=== PATIENT | male | born 1990 | race Caucasian/White ===

== ENCOUNTER 2020-11-29 22:40 | Emergency (ER) | payer OTHER ==
[2020-11-29] MEDS ORDERED: MORPHINE SULFATE 4 MG INJ IV ONE (23:57)
[2020-11-29] MEDS ORDERED: Protonix 40MG Tablet PO ONE (23:57)
[2020-11-29] MEDS ORDERED: Sodium Chloride 0.9% 1000 ML 1,000 ML IV STA (23:57)
[2020-11-29] MEDS ORDERED: Zofran 4 MG/2 ML VIAL IV ONE (23:57)
--- NOTE | 2020-11-29 23:59 | ERPHSYRPT ---
- History of Present Illness Time Seen by Provider: 11/29/20 23:02 Historian: patient Exam Limitations: no limitations Physician History: 29 years old positive for COVID-19 presented in the ER with worsening nausea vomiting and upper abdominal pain for 5 days. Patient is unable to hold anything down, feels weak fatigued and tired with no energy. Denies any shortness of breath. Minimal cough at times. Had fever earlier which is improved now. Timing/Duration: day(s) (5), intermittent, gradual onset, worse Activities at Onset: rest Quality: sharpness Abdominal Pain Onset Location: RUQ, LUQ, epigastric, periumbilical Pain Radiation: no radiation Severity of Pain-Max: moderate Severity of Pain-Current: moderate Modifying Factors: Worsens With: vomiting Associated Symptoms: nausea, vomiting Previous symptoms: no prior history Allergies/Adverse Reactions: amoxicillin trihydrate [From Augmentin] Allergy (Mild, Verified 11/29/20 23:50) potassium clavula *RETIRED-07/23/12 [From Augmentin] Allergy (Mild, Verified 11/29/20 23:50) Penicillins Allergy (Verified 11/29/20 23:50) Hx Tetanus, Diphtheria Vaccination/Date Given: Yes Hx Influenza Vaccination/Date Given: No Hx Pneumococcal Vaccination/Date Given: No - Review of Systems Constitutional: Fatigue, Weakness Eyes: No Symptoms Ears, Nose, & Throat: No Symptoms Respiratory: Cough Cardiac: No Symptoms Abdominal/Gastrointestinal: Abdominal Pain, Nausea, Vomiting Genitourinary Symptoms: No Symptoms Musculoskeletal: Back Pain Skin: No Symptoms Neurological: No Symptoms Psychological: No Symptoms Endocrine: No Symptoms Hematologic/Lymphatic: No Symptoms Immunological/Allergic: No Symptoms - Past Medical History Pertinent Past Medical History: No - Past Surgical History Past Surgical History: No - Social History Smoking Status: Never smoker Exposure to second hand smoke: No Drug Use: none Patient Lives Alone: No - Nursing Vital Signs Nursing Vital Signs: Initial Vital Signs Temperature 100.1 F 11/29/20 23:51 Pulse Rate 81 11/29/20 23:51 Respiratory Rate 16 11/29/20 23:51 Blood Pressure 127/71 11/29/20 23:51 O2 Sat by Pulse Oximetry 95 11/29/20 23:51 Pain Scale Pain Intensity 5 - Physical Exam General Appearance: no apparent distress, alert Eye Exam: PERRL/EOMI, eyes nml inspection Ears, Nose, Throat Exam: moist mucous membranes, pharyngeal erythema Neck Exam: normal inspection, non-tender, supple, full range of motion Respiratory Exam: normal breath sounds, lungs clear Cardiovascular Exam: regular rate/rhythm, normal heart sounds Gastrointestinal/Abdomen Exam: soft, normal bowel sounds, tenderness (Upper abdomen with minimal guarding and no rebound) Back Exam: normal inspection, normal range of motion Extremity Exam: normal inspection, normal range of motion Neurologic Exam: alert, oriented x 3, cooperative Skin Exam: normal color SpO2 Interpretation: normal SpO2: 98 O2 Delivery: Room Air Ordered Tests: Medication Summary Discontinued Medications Generic Name Dose Route Start Last Admin Trade Name Freq PRN Reason Stop Dose Admin Acetaminophen 1,000 mg 11/30/20 00:56 11/30/20 01:17 Tylenol Extra Strength 500 Mg PO 11/30/20 00:57 1,000 mg STAT STA Administration Acetaminophen Confirm 11/30/20 01:13 Tylenol Extra Strength 500 Mg Administered 11/30/20 01:14 Dose 1,000 mg .ROUTE .STK-MED ONE Sodium Chloride 1,000 mls @ 999 mls/hr 11/29/20 23:57 11/30/20 01:42 Sodium Chloride 0.9% 1000 Ml IV 11/30/20 00:57 Infused .Q1H1M STA Infusion Sodium Chloride Confirm 11/30/20 00:15 Sodium Chloride 0.9% 1000 Ml Administered 11/30/20 00:16 Dose 1,000 mls @ ud .ROUTE .STK-MED ONE Azithromycin 500 mg in 250 mls @ 250 mls/hr 11/30/20 01:08 11/30/20 01:16 Zithromax 500 Mg/ 250 Ml Nacl Premix IV 11/30/20 02:07 250 mls/hr STAT STA 250 mls/hr Administration Azithromycin Confirm 11/30/20 01:13 Zithromax 500 Mg/ 250 Ml Nacl Premix Administered 11/30/20 01:14 Dose 500 mg in 250 mls @ ud IV .STK-MED ONE Morphine Sulfate 4 mg 11/29/20 23:57 11/30/20 00:17 Morphine Sulfate 4 Mg Inj IV 11/29/20 23:58 4 mg STAT ONE Administration Morphine Sulfate Confirm 11/30/20 00:15 Morphine Sulfate 4 Mg Inj Administered 11/30/20 00:16 Dose 4 mg .ROUTE .STK-MED ONE Ondansetron HCl 4 mg 11/29/20 23:57 11/30/20 00:18 Zofran 4 Mg/2 Ml Vial IV 11/29/20 23:58 4 mg STAT ONE Administration Ondansetron HCl Confirm 11/30/20 00:14 Zofran 4 Mg/2 Ml Vial Administered 11/30/20 00:15 Dose 4 mg .ROUTE .STK-MED ONE Pantoprazole Sodium 40 mg 11/29/20 23:57 11/30/20 00:18 Protonix 40mg Tablet PO 11/29/20 23:58 40 mg STAT ONE Administration Pantoprazole Sodium Confirm 11/30/20 00:14 Protonix 40mg Tablet Administered 11/30/20 00:15 Dose 40 mg .ROUTE .STK-MED ONE Lab/Rad Data: Laboratory Result Diagrams 11/29/20 00:42 11/29/20 00:42 Laboratory Results 11/30/20 11/29/20 11/29/20 Range/Units 01:12 00:42 00:42 WBC 2.2 L (4.0-10.5) K/mm3 RBC 5.49 (4.1-5.6) M/mm3 Hgb 15.9 (12.5-18.0) gm/dl Hct 48.1 (42-50) % MCV 87.6 (78-100) fl MCH 29.0 (26-32) pg MCHC 33.1 (32-36) g/dl RDW 13.1 (11.5-14.0) % Plt Count 127 L (150-450) K/mm3 MPV 9.5 (7.5-11.0) fl Gran % 48.5 (36.0-66.0) % Eos # (Auto) 0.01 (0-0.5) Absolute Lymphs (auto) 0.66 L (1.0-4.6) Absolute Monos (auto) 0.45 (0.0-1.3) Lymphocytes % 30.0 (24.0-44.0) % Monocytes % 20.5 H (0.0-12.0) % Eosinophils % 0.5 (0.00-5.0) % Basophils % 0.5 (0.0-0.4) % Absolute Granulocytes 1.07 L (1.4-6.9) Basophils # 0.01 (0-0.4) Sodium 137 (137-145) mmol/L Potassium 3.8 (3.5-5.1) mmol/L Chloride 98 (98-107) mmol/L Carbon Dioxide 28 (22-30) mmol/L Anion Gap 14.3 (5-15) MEQ/L BUN 13 (9-20) mg/dL Creatinine 1.06 (0.66-1.25) mg/dL Estimated GFR > 60.0 ML/MIN Glucose 91 (74-106) mg/dL Calcium 8.4 (8.4-10.2) mg/dL Total Bilirubin 0.50 (0.2-1.3) mg/dL AST 38 (17-59) U/L ALT 27 (0-50) U/L Alkaline Phosphatase 61 (38-126) U/L Serum Total Protein 7.5 (6.3-8.2) g/dL Albumin 4.4 (3.5-5.0) g/dL Lipase 87 (23-300) U/L Urine Color YELLOW (YELLOW) Urine Appearance CLEAR (CLEAR) Urine pH 6.0 (5-6) Ur Specific [place] 1.018 (1.005-1.025) Urine Protein NEGATIVE (Negative) Urine Ketones TRACE (NEGATIVE) Urine Blood SMALL (0-5) Neville/ul Urine Nitrite NEGATIVE (NEGATIVE) Urine Bilirubin NEGATIVE (NEGATIVE) Urine Urobilinogen NEGATIVE (0-1) mg/dL Ur Leukocyte Esterase NEGATIVE (NEGATIVE) Urine WBC (Auto) 0-2 (0-5) /HPF Urine RBC (Auto) 0-2 (0-2) /HPF U Epithel Cells (Auto) NONE (FEW) /HPF Urine Bacteria (Auto) NONE (NEGATIVE) /HPF Urine Mucus (Auto) SLIGHT (NEGATIVE) /HPF Urine Culture Reflexed NO (NO) Urine Glucose NEGATIVE (NEGATIVE) mg/dL - Progress Progress: improved Progress Note: Given fluids and symptomatic treatment, on reevaluation feeling better. CBC consistent with Covid. Does have bilateral pneumonia. No acute pathology in the abdomen. Started on antibiotics and steroid along with Zofran outpatient follow-up recommended. Counseled pt/family regarding: lab results, diagnosis, need for follow-up, rad results - Departure Departure Disposition: Home Clinical Impression: Viral syndrome Abdominal pain Qualifiers: Abdominal location: upper abdomen, unspecified Qualified Code(s): R10.10 - Upper abdominal pain, unspecified Bilateral pneumonia Qualifiers: Pneumonia type: due to unspecified organism Lung location: lower lobe of lung Qualified Code(s): J18.9 - Pneumonia, unspecified organism Condition: Stable Critical Care Time: No Referrals: DOCTOR,NO FAMILY [Primary Care Provider] - ROSANA CHAPPELL MD [ACTIVE STAFF] - Follow Up with PCP/3 days Instructions: Nausea and Vomiting, Adult (DC), Viral Syndrome (DC) Additional Instructions: Keep yourself well-hydrated with plenty of fluids. Take Zofran and Tylenol as needed. Follow-up with your primary care for reevaluation. Return to ER for intractable abdominal pain vomiting or if develop cough shortness of breath etc. Follow contact and droplet precautions Prescriptions: Ondansetron ODT 4 MG [Zofran Odt 4 mg] 4 mg PO Q6H PRN PRN #10 tablet PRN Reason: Vomiting Dexamethasone [Decadron] 6 mg PO DAILY #5 tablet Albuterol 8 gm Mdi Hfa [Ventolin Hfa MDI] 8 gm IH Q4H #1 gm Azithromycin 250 mg [Zithromax 250 MG TABLET] 250 mg PO DAILY #4 tablet
[2020-11-30] MEDS ORDERED: Protonix 40MG Tablet ONE (00:14)
[2020-11-30] MEDS ORDERED: Zofran 4 MG/2 ML VIAL ONE (00:14)
[2020-11-30] MEDS ORDERED: MORPHINE SULFATE 4 MG INJ ONE (00:15)
[2020-11-30] MEDS ORDERED: Sodium Chloride 0.9% 1000 ML 1,000 ML ONE (00:15)
[2020-11-30 00:46] LABS: Absolute Neutrophil Ct (ANC) 1.07 (1.4-6.9); BASOPHIL % 0.5 % (0.0-0.4); Basophil (Absolute #) 0.01 (0-0.4); Eosinophil % 0.5 % (0.00-5.0); Eosinophil (Absolute #) 0.01 (0-0.5); Hematocrit 48.1 % (42-50); Hemoglobin 15.9 gm/dl (12.5-18.0); Lymphocyte (Absolute #) 0.66 (1.0-4.6); Mean Cell Volume 87.6 fl (78-100); Mean Corpuscular Hgb Concent. 33.1 g/dl (32-36); Mean Platelet Volume 9.5 fl (7.5-11.0); Monocyte (Absolute #) 0.45 (0.0-1.3); Monocytes % 20.5 % (0.0-12.0); Neutrophil % 48.5 % (36.0-66.0); Platelet Count 127 K/mm3 (150-450); Red Blood Count 5.49 M/mm3 (4.1-5.6); Red Cell Distribution Width 13.1 % (11.5-14.0); White Blood Count 2.2 K/mm3 (4.0-10.5)
[2020-11-30 00:54] LABS: ALBUMIN 4.4 g/dL (3.5-5.0); ALKALINE PHOSPHATASE 61 U/L (38-126); ANION GAP 14.3 MEQ/L (5-15); BLOOD UREA NITROGEN 13 mg/dL (9-20); CHLORIDE 98 mmol/L (98-107); Calcium 8.4 mg/dL (8.4-10.2); Carbon Dioxide 28 mmol/L (22-30); Creatinine 1 1.06 mg/dL (0.66-1.25); EST GLOMERULAR FILTRATION RATE > 60.0 ML/MIN; Glucose 91 mg/dL (74-106); LIPASE 87 U/L (23-300); Potassium 3.8 mmol/L (3.5-5.1); SGOT/AST 38 U/L (17-59); SGPT/ALT 27 U/L (0-50); SODIUM 137 mmol/L (137-145); Total Protein 7.5 g/dL (6.3-8.2)
[2020-11-30] MEDS ORDERED: TYLENOL EXTRA STRENGTH 500 MG PO STA (00:56)
[2020-11-30] MEDS ORDERED: Zithromax 500 MG/ 250 ML NaCl Premix 500 MG/250 ML IVPB IV STA (01:08)
[2020-11-30] MEDS ORDERED: TYLENOL EXTRA STRENGTH 500 MG ONE (01:13)
[2020-11-30] MEDS ORDERED: Zithromax 500 MG/ 250 ML NaCl Premix 500 MG/250 ML IVPB IV ONE (01:13)
[2020-11-30 01:49] LABS: Appearance CLEAR (CLEAR); Bilirubin NEGATIVE (NEGATIVE); Blood SMALL Ery/ul (0-5); Glucose NEGATIVE (NEGATIVE); Ketones TRACE (NEGATIVE); Leukocyte Esterase NEGATIVE (NEGATIVE); Mucus SLIGHT /HPF (NEGATIVE); Nitrite NEGATIVE (NEGATIVE); Protein,Urine Dip NEGATIVE (Negative); RBC 0-2 /HPF (0-2); Specific Gravity 1.018 (1.005-1.025); Urobilinogen NEGATIVE mg/dL (0-1); WBC 0-2 /HPF (0-5)
[2020-11-30 02:37] VITALS: BP 105/65; PULSE 72
--- NOTE | 2020-11-30 09:05 | XRAY ---
Indication: Abdomen pain, nausea, and vomiting. Positive Covid 19. Multiple contiguous axial images obtained through the abdomen and pelvis without contrast. Comparison: None Lung bases demonstrates diffuse bilateral patchy consolidating airspace disease. No effusion. Heart is not enlarged. Noncontrasted stomach and bowel loops nonobstructed. Normal appendix. Radiopacity throughout the colon presumed ingested medication/bismuth versus barium. No free fluid/air. Remaining liver, gallbladder, pancreas, spleen, adrenal glands, kidneys, ureters, bladder, and aorta are unremarkable for noncontrast exam. Osseous structures intact. No ventral or inguinal hernias. Impression: 1. Bibasilar consolidating airspace disease. 2. Remaining CT abdomen/pelvis without contrast exam is negative. Comment: Preliminary interpretation made by [facility]. No critical discrepancy.
[2020-12-02 17:21] VITALS: O2SAT 98
== END 2020-11-30 02:37 | disposition home or self-care (01) ==
LOC: ED 22:40
DX: B34.9 Viral infection, unspecified (principal); J18.9 Pneumonia, unspecified organism
CPT/HCPCS: 36000; 36415; 74176; 80053; 81001; 83690; 85025; 96360; 96365; 96374; 96375; 99284; J0456; J2270; J2405; A9270-GY